=== PATIENT | male | born 1970 | race Caucasian/White ===

== ENCOUNTER 2022-04-24 13:49 | Emergency (ER) | payer OTHER ==
[~2022-04-24] VITALS: Ht 188 cm; Wt 163.3 kg
--- NOTE | 2022-04-24 13:50 | NUR ---
Patient triaged and continues in [facility] with EMS . VSS and patient appears in no acute distress at this time. Accompanied by EMS , awaiting available bed, and MD notified of need for MSE.
[2022-04-24 13:51] VITALS: BP_SYST 138
--- NOTE | 2022-04-24 13:52 | NUR ---
Pt brought by ALS, Alert and oriented x4 , pt presents to ER with chest pain and epigastric pain, anxious, pt has Hx of SVT, EKG indicates HR 110, skin pink and warm, respirations even and unlabored, cap refill <3
--- NOTE | 2022-04-24 14:25 | NUR ---
Pt states he wants to leave the ER, Dr Kaplan notified
--- NOTE | 2022-04-24 14:27 | NUR ---
Dr Kaplan speaking with patient about possible AMA, pt ambulatory, respirations even and unlabored.
--- NOTE | 2022-04-24 14:30 | NUR ---
Patient does not wish to proceed with medical care recommended by Dr Kaplan . Patient given information related to possible complications, up to and including , which could occur as a result of leaving hospital at this time. Patient verbalizes understanding of risks involved leaving against medical advice. Patient has signed AMA form.Pt refused to take IV out placed by [facility] prior arrival, states he is going to [facility] with IV on his arm.
--- NOTE | 2022-04-24 14:42 | NUR ---
CALL PLACED TO [facility] ER DEPT, SPOKE WITH CHARGE NURSE AND INFORMATION GIVEN. EXPLAINED TO PLEASE LET US KNOW IF PT SHOWS UP WITH IV IN ARM. WILL WAIT FOR RETURN CALL
--- NOTE | 2022-04-24 14:55 | NUR ---
ATTEMPTED TO CALL PT AT GIVEN NUMBER AND PHONE IS DISCONNECTED.
--- NOTE | 2022-04-24 15:00 | NUR ---
CALL PLACED TO [facility] AND SPOKE WITH OFFICER LUCAS. INFORMATION GIVEN AND THEY WILL INVESTIGATE.
--- NOTE | 2022-04-24 15:56 | NUR ---
RECEIVED CALL FROM [facility] AND PT DID ARRIVE TO ER WITH IV IN ARM.
== END 2022-04-24 15:56 | disposition left against medical advice (07) ==
LOC: SED 13:49
DX: R07.89 Other chest pain (principal); Z53.21 Procedure and treatment not carried out due to patient leaving prior to being seen by health care provider
CPT/HCPCS: 93005; 99283